=== PATIENT | female | born 1990 | race Caucasian/White ===

== ENCOUNTER 2019-10-28 13:45 | Emergency (ER) | payer OTHER ==
[~2019-10-28] VITALS: Ht 165.1 cm; Wt 99.8 kg
[2019-10-28 14:19] LABS: URINE BILIRUBIN NEGATIVE (Negative); URINE BLOOD NEGATIVE (Negative); URINE CLARITY CLEAR; URINE COLOR YELLOW; URINE GLUCOSE-RANDOM NEGATIVE (Negative); URINE KETONES NEGATIVE (Negative); URINE LEUKOCYTES-REFLEX TRACE (Negative); URINE NITRITE-REFLEX NEGATIVE (Negative); URINE PROTEIN NEGATIVE (Negative); URINE SPECIFIC GRAVITY 1.025 (1.005-1.030)
[2019-10-28 14:25] LABS: BACTERIA-REFLEX >30 Many /HPF (None Seen); CASTS None Seen /LPF (None Seen); CRYSTALS None Seen /LPF (None Seen); SQUAMOUS 0-3 Few /LPF (0-3); URINE RBC 0-2 Rare /HPF (0-2); URINE WBC-REFLEX 0-5 Rare /HPF (0-5)
[2019-10-28] MEDS ORDERED: PROZAC20 M1 PO (14:28)
[2019-10-28] MEDS ORDERED: LISINOPRIL2.5 MG PO (14:29)
[2019-10-28] MEDS ORDERED: NORCO 5-325 TA1 EAC1 PO (16:13)
[2019-10-28] MEDS ORDERED: ONDANSETRON ODT4 MG PO (16:13)
[2019-10-28] MEDS ORDERED: LIDODERM1 EACH TOP (16:13)
[2019-10-28] MEDS ORDERED: MEDROLDOSEPACK PO (16:13)
[2019-10-28 16:22] VITALS: BP 117/68
== END 2019-10-28 16:23 | disposition home or self-care (01) ==
LOC: M.ERS 13:45
PROVIDERS: Physician Assistant
DX: M51.27 Other intervertebral disc displacement, lumbosacral region (principal); Z90.49 Acquired absence of other specified parts of digestive tract; Z88.1 Allergy status to other antibiotic agents

== ENCOUNTER 2019-11-13 22:39 | Emergency (ER) | payer OTHER ==
[~2019-11-13] VITALS: Ht 165.1 cm; Wt 99.8 kg
[~2019-11-13 22:39] MED LIST: LIDODERM1 EACH TOP; LISINOPRIL2.5 MG PO; MEDROLDOSEPACK PO; NORCO 5-325 TA1 EAC1 PO; ONDANSETRON ODT4 MG PO; PROZAC20 M1 PO
[2019-11-13 23:05] LABS: URINE BILIRUBIN NEGATIVE (Negative); URINE BLOOD 3+ (Negative); URINE CLARITY CLEAR; URINE COLOR YELLOW; URINE GLUCOSE-RANDOM NEGATIVE (Negative); URINE KETONES NEGATIVE (Negative); URINE LEUKOCYTES-REFLEX NEGATIVE (Negative); URINE NITRITE-REFLEX NEGATIVE (Negative); URINE PROTEIN NEGATIVE (Negative); URINE SPECIFIC GRAVITY >= 1.030 (1.005-1.030); URINE UROBILINOGEN 0.2 E.U./dl (0.2-1.0)
[2019-11-13 23:13] LABS: AMP/METHAMP POSITIVE (Negative); BARBITURATES Negative (Negative); BENZODIAZEPINES Negative (Negative); COCAINE Negative (Negative); METHADONE Negative (Negative); OPIATES Negative (Negative); PCP Negative (Negative); THC Negative (Negative)
[2019-11-13 23:15] LABS: BACTERIA-REFLEX >30 Many /HPF (None Seen); CASTS None Seen /LPF (None Seen); CRYSTALS None Seen /LPF (None Seen); MUCUS 0-3 Light strn/LPF (None Seen); SQUAMOUS 4-10 Moderate /LPF (0-3); URINE RBC >20 Many /HPF (0-2); URINE WBC-REFLEX None Seen /HPF (0-5)
[2019-11-13] MEDS ORDERED: ROBAXIN 750 MG750 MG PO (23:32)
[2019-11-13] MEDS ORDERED: TRAMADOL 50 MG50 MG PO (23:32)
[2019-11-13] MEDS ORDERED: BACLOFEN 10MG T10 MG PO (23:32)
[2019-11-14 00:12] VITALS: BP 154/100
== END 2019-11-14 00:13 | disposition home or self-care (01) ==
LOC: M.ERS 22:39
PROVIDERS: Emergency Medicine
DX: M54.16 Radiculopathy, lumbar region (principal); Z90.49 Acquired absence of other specified parts of digestive tract; Z88.1 Allergy status to other antibiotic agents

== ENCOUNTER 2019-11-30 20:37 | Inpatient (IN) | payer OTHER ==
[~2019-11-30] VITALS: Ht 165.1 cm; Wt 99.2 kg
[~2019-11-30 20:37] MED LIST changes: +BACLOFEN 10MG T10 MG PO; +ROBAXIN 750 MG750 MG PO; +TRAMADOL 50 MG50 MG PO
[2019-11-30 20:41] VITALS: BP 115/62
[2019-11-30 21:23] LABS: HEMATOCRIT 36.1 % (37.0-47.0); HEMOGLOBIN 12.6 gm/dL (12.0-15.0); MCH 32.4 pg (26.0-34.0); MCV 92.6 fL (80.0-100.0); MPV 9.2 fl. (7.2-11.1); NUCLEATED RBCS 0 /100WBC; PLATELET COUNT* 146 thou/uL (150-400); RDW-CV 13.6 % (10.5-14.5); WBC 9.4 thou/uL (4.0-11.0)
[2019-11-30 21:30] LABS: INR 1.3; PROTIME 13.3 Seconds (9.20-11.50)
[2019-11-30 21:31] LABS: CALCIUM 7.6 mg/dL (8.5-10.1); POTASSIUM 3.7 mmol/L (3.5-5.1)
[2019-11-30 21:41] LABS: ALBUMIN 2.6 g/dL (3.4-5.0); MAGNESIUM 1.3 mg/dL (1.8-2.4); TOTAL BILIRUBIN 1.7 mg/dL (<0.1-1.0); TOTAL PROTEIN 6.1 g/dL (6.4-8.2)
[2019-11-30 21:49] LABS: BE -5.3 mmol/L (-2 to +3); PO2 97.2 mmHg (75.0-100.0); pH 7.441 (7.340-7.450)
[2019-11-30 21:53] LABS: ABSOLUTE LYMPHOCYTES 0.6 thou/uL (0.8-5.3); ABSOLUTE MONOCYTES 0.1 thou/uL (0.0-1.2); ABSOLUTE NEUTROPHILS 8.7 thou/uL (1.6-8.1); PLATELET ESTIMATE ADEQUATE
[2019-11-30 22:46] LABS: URINE BILIRUBIN NEGATIVE (Negative); URINE BLOOD 2+ (Negative); URINE CLARITY CLEAR; URINE COLOR YELLOW; URINE GLUCOSE-RANDOM NEGATIVE (Negative); URINE KETONES NEGATIVE (Negative); URINE PROTEIN 1+ (Negative); URINE SPECIFIC GRAVITY 1.015 (1.005-1.030); URINE UROBILINOGEN 0.2 E.U./dl (0.2-1.0)
[2019-11-30 22:48] LABS: URINE LEUKOCYTES-REFLEX 3+ (Negative); URINE NITRITE-REFLEX POSITIVE (Negative)
[2019-11-30 22:56] LABS: BACTERIA-REFLEX >30 Many /HPF (None Seen); CASTS None Seen /LPF (None Seen); CRYSTALS None Seen /LPF (None Seen); SQUAMOUS 0-3 Few /LPF (0-3); URINE RBC 3-10 Few /HPF (0-2); URINE WBC-REFLEX >25 Many /HPF (0-5)
[2019-11-30 23:02] LABS: AMP/METHAMP POSITIVE (Negative); BARBITURATES Negative (Negative); BENZODIAZEPINES Negative (Negative); COCAINE Negative (Negative); METHADONE Negative (Negative); OPIATES Negative (Negative); PCP Negative (Negative); THC Negative (Negative)
[2019-12-01] VITALS (82 sets, daily range): BP systolic 78–147; BP diastolic 42–126
[2019-12-01] MEDS ORDERED: TYLENOL ARTHRI650 MG PO (05:12)
--- NOTE | 2019-12-01 07:39 | NUR ---
RECEIVED PATIENT REPORT FROM ER NURSE. PATIENT BROUGHT TO UNIT AT 0215. PATIENT ORIENTED TO UNIT, BED, CALL-LIGHT, AND HOSPITAL POLICY. ASSESSMENTS COMPLETED CHARTED. CARDIAC MONITORING IN PLACE. BED LOCKED AND IN LOWEST POSITION, BED ALARM ON FOR PATIENT SAFETY.
--- NOTE | 2019-12-01 08:30 | EKG ---
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
--- NOTE | 2019-12-01 08:30 | EKG ---
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 12/01/19827 00 00 Felipe Rader MD, [facility] /EPI
--- NOTE | 2019-12-01 14:25 | NUR ---
ICU rounds: Meth positive. Covid pending. MRI of back planned. Watching for sx of withdrawing. Cards and ID following. CM left message for Pt's boyfriend to obtain hx, await call back.
[2019-12-01 14:46] LABS: CALCIUM 7.4 mg/dL (8.5-10.1); CREATININE 1.9 mg/dL (0.6-1.3); POTASSIUM 4.2 mmol/L (3.5-5.1)
--- NOTE | 2019-12-01 17:08 | NUR ---
ASSUMED CARE OF PT AROUND 0730 THIS AM. REFER TO ASSESSMENT. PT CONTINUES TO BE TACHYPNEIC THROUGHOUT SHIFT. ALTHOUGH, MAINTAINS OXYGEN SATURATION >92% ON 2L/NC. PT VERY ANXIOUS THIS SHIFT. REPORTS HAVING 'PANIC ATTACKS' FREQUENTLY. PHYSICIAN NOTIFIED AND NEW ORDERS OBTAINED FOR PRN ATIVAN. MEDICATION ADMINISTERED TO PT AND PT NOTED TO BE LETHARGIC/ DROWSY POST ADMINISTRATION ALTHOUGH, PT'S TACHYPNEA AND TACHYCARDIA CONTINUED. PT MAKING FREQUENT STATEMENTS OF LEAVING AMA THIS SHIFT. PT EDUCATED ON PLAN OF CARE. PT TITRATED OFF LEVOPHED AT THIS TIME. MAP 82. CVP MONITORING INITIATED THIS SHIFT. PT'S 4TH LITER BOLUS HELD D/T CVP AROUND 14 THIS AM. PT TOLERATING CL DIET WITH NO C/O NAUSEA AND VOMITING. PT HAVING MULTIPLE FAMILY MEMBERS TRYING TO CALL AND GET INFORMATION ON PATIENT. PT ADAMANT THAT "BOYFRIEND" JOCELINE IS THE ONLY AUTHORIZED CONTACT. STATES HER FATHER IS WHY SHE IS HOMELESS AND STATES THAT IF ANYBODY FOUND OUT ABOUT HER POSITIVE UDS SHE WOULD LOSE HER KIDS FOREVER. PT CONTINUES ON ENHANCED PRECAUTIONS ISOLATION FOR R/O COVID. NO OTHER CONCERNS AT THIS TIME. CLWR. WCTM.
--- NOTE | 2019-12-01 20:00 | NUR ---
RECEIVED REPORT AND ASSUMED CARE OF PT, ASSESSMENT COMPLETED. PT RESTLESS AND AWAKENS EASILY. PT TACHYPNIC AND MOUTH BREATHING. ENCOURAGED TO NOSE BREATH AND BLOW OUT OF MOUTH. O2 ON AT 2L/NC. ASSISTED TO BSC, PAINFUL MOVEMENT DUE TO CHRONIC BACK PAIN. VOIDING WITHOUT DIFFICULTY. SQL SSRS SSIS DEVELOPER ON SHOWING ST. WILL CONT TO MONITOR AND ASSIST NEEDED.
--- NOTE | 2019-12-01 20:00 | NUR ---
RECEIVED REPORT AND ASSUMED CARE OF PT EARLIER. ASSESSMENT COMPLETED AT THIS TIME. RT GROIN AND RLQ ABD FIRM AND TENDER TO TOUCH. NO BRUISING NOTED. RT GROIN INCISON WITHOUT REDNESS OR DRAINAGE, DRSG INTACT. BLOOD TRANSFUSION HAS COMPLETED WITHOUT INCIDENT. PT ALERT AND RESTLESS, CONSTANTLY BENDING RT LEG AND MOVING AROUND IN BED. SENIOR SAS DEVELOPER ON SHOWING SB WITH RATE INTO 50'S. NO COMPLAINTS VOICED. WILL CONT TO MONITOR AND ASSIST NEEDED.
[2019-12-02] VITALS (67 sets, daily range): BP systolic 65–151; BP diastolic 33–91
--- NOTE | 2019-12-02 | NUR ---
RESTING WELL. PLACED NASAL CANNULA INTO MOUTH DUE TO MOUTH BREATHING. PT OCC REMOVING IT AND THEN DESATS. PT AGAINED EDUCATED ON NOSE BREATHING AND ATTEMPTING TO SLOW RESP DOWN. RT IJ DRSG CHANGED WITH STERILE PROCEDURE. PT DOES C/O MIGRANE LEA WITH MOVEMENT.
--- NOTE | 2019-12-02 | NUR ---
PT HAS BEEN SLEEPING QUIETLY SINCE APPROX 2100 AND REMAINS STILL UNTIL THIS TIME. NOW PULLING AT LINES AGAIN AND BENDING LEG. VERY FORGETFUL, BELIEVES SHE HAS TO GO TO HOSPITAL TODAY FOR A SURGERY. REASSURANCE GIVEN. RLQ ABD UNCHANGED AND REMAINS TENDER TO TOUCH. DR MONROY MADE AWARE OF POST HGB.
--- NOTE | 2019-12-02 04:00 | NUR ---
SLEEPING BUT AWAKENS AND C/O MIGRANE LEA AND BACK PAIN. ASSISTED TO BSC. URINE CLOUDY YELLOW NOW. DRINKING SM AMT OF FLUIDS. NO CHANGE IN ASSESSMENT.
[2019-12-02 04:57] LABS: ABSOLUTE LYMPHOCYTES 1.1 thou/uL (0.8-5.3); ABSOLUTE MONOCYTES 0.8 thou/uL (0.0-1.2); ABSOLUTE NEUTROPHILS 13.7 thou/uL (1.6-8.1); BASOPHILS 0.2 %; EOSINOPHILS 0.2 %; HEMATOCRIT 30.9 % (37.0-47.0); LYMPHOCYTES 7.2 %; MCH 32.7 pg (26.0-34.0); MCHC 35.6 g/dL (28.0-37.0); MCV 91.8 fL (80.0-100.0); MONOCYTES 4.9 %; MPV 10.2 fl. (7.2-11.1); NUCLEATED RBCS 0 /100WBC; PLATELET COUNT* 118 thou/uL (150-400); POLYS 87.5 %; RBC 3.37 mil/uL (4.20-5.00); RDW-CV 14.5 % (10.5-14.5); WBC 15.7 thou/uL (4.0-11.0)
[2019-12-02 05:08] LABS: CALCIUM 8.1 mg/dL (8.5-10.1); CREATININE 1.6 mg/dL (0.6-1.3); MAGNESIUM 2.2 mg/dL (1.8-2.4); POTASSIUM 3.3 mmol/L (3.5-5.1)
--- NOTE | 2019-12-02 06:54 | NUR ---
SLEPT WELL BUT C/O CONSTANT HEADACHE AND BACK PAIN. DENIES NAUSEA, ASKING FOR FOOD, STATES SHE IS HUNGRY. CONT TO BE TACHPIC AND MOUTH BREATHING. ASSISTED TO BSC AND VOIDING IN LG AMT. VS STABLE WITH ASSESSMENT UNCHANGED. HS GOALS OF REST AND SAFETY ACHIEVED.
--- NOTE | 2019-12-02 07:34 | CON ---
[address] [address] CONSULTATION Name: MASONEVELYN BLACKWELL Dia Room: [address] IN M.R.#: [id number] Admission: 11/30/19 Attend Phys: Sukhwinder Stoll MD Discharge: Date of : 86 Report #: [id number] THIS REPORT FOR: //name// cc: STEVEN Andres family physician/PCP STEVEN Andres family physician/PCP ~ THIS REPORT FOR: //name// CC: Sukhwinder HARRIS physician/PCP DATE OF SERVICE: 12/01/2019 INFECTIOUS DISEASE CONSULTATION ATTENDING PHYSICIAN: Sukhwinder Stoll MD REASON FOR EVALUATION: Complicated urinary tract infection with sepsis. HISTORY OF PRESENT ILLNESS: Chart reviewed, patient examined. This is a 29-year-old woman with significant medical history who has known illicit drug use in the past was evaluated in the Emergency Room with roughly 2-day history of onset of constellation of signs and symptoms including fever or chills, diaphoresis, headache, nausea, emesis with associated upper back pain. Does admit to some dyspnea as well. There are elevated inflammatory markers including CRP greater than 430. D-dimer is elevated as well as her troponin level. Lactic acid elevated to 3.3. Urinalysis showed marked pyuria and bacteriuria. She is quite uncomfortable at this point. States she is very diaphoretic, very anxious, describes or experiences a panic attack. She is maintained on supplemental oxygen. She has been given empiric antimicrobials with vancomycin and levofloxacin, piperacillin and tazobactam. ALLERGIES: LISTED TO CEPHALEXIN, WHICH CAUSES URTICARIA. CURRENT MEDICATIONS: Include vancomycin, enoxaparin, pantoprazole, ondansetron as needed. PAST MEDICAL HISTORY: Previous cholecystectomy, tonsillectomy, chronic back pain, depression. SOCIAL HISTORY: She has 5 children, going through a divorce. FAMILY HISTORY: Noncontributory. REVIEW OF SYSTEMS: As noted above. PHYSICAL EXAMINATION: [place] [address] CONSULTATION Name: EVELYN MASON Dia Room: [address] IN [facility].#: [id number] Admission: 11/30/19 Attend Phys: Sukhwinder Stoll MD Discharge: Date of : 86 Report #: [id number] GENERAL: She is in cyco-wd-oylmxami distress. She is quite anxious. She is diaphoretic. She is able to be redirected and apparently, she is much calmer when peep out of the room. VITAL SIGNS: Temperature 98.2, pulse 122, respirations 19, blood pressure 114/67. SKIN: Warm, moist HEENT: Normocephalic. Extraocular muscles intact. NECK: Supple. LUNGS: She is tachypneic. Few scattered coarse breath sounds. HEART: Tachycardic, regular. I do not appreciate murmur. ABDOMEN: Soft, nontender, nondistended. There are no peritoneal signs. GENITOURINARY AND RECTAL: Deferred. LABORATORY DATA: Most recent lactic acid of 3.1. ProBNP of 76/12. Blood cultures sterile thus far. Chest x-ray, no acute process. CT of the chest without evidence of pulmonary embolus. Procalcitonin elevated at 9.68. test was negative. Positive drug screen for methamphetamine. Urinalysis described above, greater than 25 white cells, greater than 30 bacteria. ASSESSMENT AND PLAN: Sepsis, likely due to genitourinary tract source. We will continue therapy. This anxiety is not entirely clear. It certainly raises question of some withdrawal perhaps adverse drug effect. We will avoid the fluoroquinolones for now as needed, gram-negative coverage. Creatinine is 2.0. Continue the piperacillin and tazobactam, pending the further results. She is seemingly quite tenuous at this point. Risk for additional complications. Monitor expectantly. <ELECTRONICALLY SIGNED> By: Mike Andino MD 12/02/19 0734 1414 [id number] Andino MD /nt
--- NOTE | 2019-12-02 10:42 | NUR ---
Nutrition: screen for sepsis dx. Has order to transfer out of ICU. Tolerated clear liquid diet. To start regular diet today; pt stated she was hungry. K+ 3.3, Cl 109, RFT's 26/1.6, albumin 2.6. BMI indicates morbid obesity. Meds reviewed. Assessed at low nutrition risk at this time.
--- NOTE | 2019-12-02 15:08 | NUR ---
ICU rounds: Pt is septic and not oriented. CRIS spoke with Pt's BF via phone. Pt is normally active and independent and A&O. No DME. Per BF, for the past few days, Pt has been febrile, not eating well, hard to get out of bed and pale, which prompted BF to bring her to the hospital. Pt has a scheduled back surgery planned for 12/27/19 at [facility]. Pt has the [facility] Gold card. BF requested that Dr call him, CRIS updated . Following.
--- NOTE | 2019-12-02 17:17 | 2DMMODE ---
[place] [address] 2 D/M-MODE ECHOCARDIOGRAM Name: EVELYN MASON Room: [address] ADM IN M.R.#: [id number] Admission: 11/30/19 Attend Phys: Sukhwinder Stoll, Discharge: Date of : 86 Date of Service: 12/02/19 1715 Report #: [id number] THIS REPORT FOR: cc: FAM - No family physician/PCP FAM - No family physician/PCP Wade Lovelace MD [facility] ~ APPROVED REPORT Study performed: 12/02/2019 16:22:31 EXAM: Comprehensive 2D, Doppler, and color-flow Echocardiogram Patient Location: In-Patient BSA: 2.03 HR: 122 bpm BP: 135/84 mmHg Other Information Study Quality: Fair Indications Sepsis Elevated Troponin 2D Dimensions IVSd: 9.90 (7-11mm) LVOT Diam: 20.80 (18-24mm) LVDd: 51.34 mm PWd: 9.52 (7-11mm) Ascending Ao: 24.23 (22-36mm) LVDs: 41.01 (25-40mm) Aortic Root: 26.64 mm Volumes Left Atrial Volume (Systole) LA ESV Index: 14.40 mL/m2 Aortic Valve AoV Peak Femi.: 1.23 m/s AO Peak Gr.: 6.06 mmHg LVOT Max P.52 mmHg AO Mean Gr.: 4.11 mmHg LVOT Mean P.00 mmHg LVOT Max V: 0.94 m/s AO V2 VTI: 18.44 cm LVOT Mean V: 0.67 m/s PANFILO (VTI): 2.47 cm2 LVOT V1 VTI: 13.40 [place] [address] 2 D/M-MODE ECHOCARDIOGRAM Name: EVELYN MASON Room: [address] IN ..#: [id number] Admission: 11/30/19 Attend Phys: Sukhwinder Stoll, Discharge: Date of : 86 Date of Service: 12/02/19 1715 Report #: [id number] MV Decel. Time: 153.41 ms MV PHT: 44.49 ms MVA (PHT): 4.94 cm2 TDI Medial E' Femi.: 0.12 m/s Lateral E' Femi.: 0.07 m/s Pulmonary Valve PV Peak Femi.: 1.29 m/s PV Peak Gr.: 6.64 mmHg Tricuspid Valve RAP Estimate: 5.00 mmHg TR Peak Gr.: 35.19 mmHg RVSP: 40.19 mmHg PA Pressure: 40.19 mmHg Left Ventricle The left ventricle is normal size. There is normal LV segmental wall motion. There is normal left ventricular wall thickness. Left ventricular systolic function is borderline. LVEF is 50-55%. Right Ventricle Right ventricle is dilated. The right ventricular systolic function is normal. Atria The left atrium size is normal. Interatrial septum not well visualized. The right atrium size is normal. Aortic Valve The aortic valve is normal in structure. No aortic regurgitation is present. There is no aortic valvular stenosis. Mitral Valve The mitral valve is normal in structure. Trace mitral regurgitation. No evidence of mitral valve stenosis. Tricuspid Valve The tricuspid valve is normal in structure. Mild tricuspid regurgitation. estimated pa pressure 40 mm hg Pulmonic Valve Pulmonic valve is not well visualized. Trace pulmonic regurgitation[place] [address] 2 D/M-MODE ECHOCARDIOGRAM Name: YURIY MASONDory Alvares Room: [address] IN .R.#: [id number] Admission: 11/30/19 Attend Phys: Sukhwinder Stoll, Discharge: Date of : 86 Date of Service: 12/02/19 1715 Report #: [id number] The aortic root is normal in size. IVC is not visualized. Pericardium There is no pericardial effusion. <Conclusion> LVEF is 50-55%. Right ventricle is dilated. <ELECTRONICALLY SIGNED> By: Wade Lovelace MD, [facility] 12/02/191714 14 14 Wade Lovelace MD, [facility] /INF
--- NOTE | 2019-12-02 19:05 | NUR ---
PT SLEPT MOST OF DAY COMPLAINING THAT SHE WANTED TO GO HOME OR BE TRANSFERREDT TO [facility]. PT CALLED 911 TO ASK FOR A TRANSFER AND [place] [employer] CALLED ME TO INFORM. INFORMED PT THAT ACCORDING TO ATTENDING FELIX THERE WAS NO MEDICAL REASON FOR HER TO TRANSFER. PT ON HER CELL PHONE FREQUENTLTY WITH FAMILY AND YELLING AT FAMILY. PT REQUEST THAT NO INFORMATION BE GIVEN TO ANYONE OTHER THAN HER CURRENT BOYFRIEND. FAMILY CALLING ME CONSTANLY FOR INFORMATION AND I HAVE INFORMED THEM SHE DOES NOT WANT TO GIVE THEM HER MEDICAL INFO. PT TOLERATED PO WELL.
--- NOTE | 2019-12-02 19:45 | NUR ---
RECEIVED REPORT AND ASSUMED CARE OF PT, ASSESSMENT COMPLETED. PT LETHARGIC, SLOW TO RESPOND. ABLE TO COMMUNICATE APPROPRIATELY. DIAPHORETIC, CONT TO BE TACHYPNIC BUT RATE AND DEPTH HAVE IMPROVED. O2 ON AT 2L/NC. HEART RATE IMPROVED ALSO TO 90-100'S. WILL CONT TO MONITOR AND ASSIST NEEDED.
[2019-12-03] VITALS (15 sets, daily range): BP systolic 108–155; BP diastolic 58–89
--- NOTE | 2019-12-03 00:14 | NUR ---
SLEEPING, HAVING PERIODS OF SLEEP APNEA EVEN WITH RR 28-32 THEN DESATING. O2 PLACED IN MOUTH DUE TO MOUTH BREATHING. ASSISTED TO BSC WITHOUT DIFFICULTY. VOIDING IN LG AMT. CONT TO C/O LEA, TYLENOL GIVEN. HS SNACK GIVEN EARLIER. PT IMMEDIATELY RETURNS TO SLEEP WHEN CARE IS COMPLETED.
--- NOTE | 2019-12-03 04:00 | NUR ---
REMAINS ASLEEP THROUGH CARE. MOANING WHILE SLEEPING. WHEN AWAKE C/O HEADACHE AND SHE IS HUNGRY!
[2019-12-03 04:10] LABS: ABSOLUTE EOSINOPHILS 0.1 thou/uL (0.0-0.7); ABSOLUTE MONOCYTES 0.7 thou/uL (0.0-1.2); ABSOLUTE NEUTROPHILS 7.4 thou/uL (1.6-8.1); BASOPHILS 0.5 %; EOSINOPHILS 0.7 %; HEMATOCRIT 30.1 % (37.0-47.0); HEMOGLOBIN 10.6 gm/dL (12.0-15.0); LYMPHOCYTES 10.5 %; MCH 32.5 pg (26.0-34.0); MCHC 35.2 g/dL (28.0-37.0); MCV 92.5 fL (80.0-100.0); MONOCYTES 7.7 %; MPV 10.3 fl. (7.2-11.1); NUCLEATED RBCS 0 /100WBC; PLATELET COUNT* 102 thou/uL (150-400); POLYS 80.6 %; RBC 3.25 mil/uL (4.20-5.00); RDW-CV 14.7 % (10.5-14.5); WBC 9.1 thou/uL (4.0-11.0)
[2019-12-03 04:26] LABS: ALBUMIN 1.8 g/dL (3.4-5.0); CALCIUM 8.1 mg/dL (8.5-10.1); CREATININE 1.4 mg/dL (0.6-1.3); POTASSIUM 3.6 mmol/L (3.5-5.1); TOTAL BILIRUBIN 1.5 mg/dL (<0.1-1.0); TOTAL PROTEIN 5.3 g/dL (6.4-8.2)
--- NOTE | 2019-12-03 06:12 | NUR ---
AWAKENS EASILY BUT IMMEDIATELY RETURNS TO SLEEP. ASSISTED TO BSC, WOBBLY. NO CHANGES IN ASSESSMENT. LABORER CHEMICAL PROCESSING SHOWING SR TO ST. HS GOALS OF REST AND SAFETY ACHIEVED.
--- NOTE | 2019-12-03 13:41 | NUR ---
PT TRANFERED TO ROOM 218. REPORT TO [facility].
--- NOTE | 2019-12-03 16:10 | NUR ---
PATIENT RESTING IN BED. UP AD THOMAS IN ROOM. STILL SLEEPY BUT EASILY AROUSABLE. VSS. AOX4. IV FLUIDS AND ABZ PER ORDERS. POSSIBLE DC TOMORROW. HOURLY ROUNDING COMPLETED FOR PATIENT SAFETY.
[2019-12-04] VITALS: BP 120/73
[2019-12-04 04:00] VITALS: BP 122/58
--- NOTE | 2019-12-04 06:54 | NUR ---
ASSESSMENTS COMPLETED AT BEDSIDE, PLEASE REFER TO CHARTING. MEDICATIONS ADMINISTERED PER MAR. HOURLY ROUNDING COMPLETED FOR SAFETY. CALL LIGHT WITHIN REACH. ALL NEEDS MET AT THIS TIME.
[2019-12-04 08:00] VITALS: BP 138/87
[2019-12-04 12:00] VITALS: BP 152/83
--- NOTE | 2019-12-04 16:37 | NUR ---
SRIKANTH RESTING IN BED. SPENT THE MAJORITY OF THE DAY SLEEPING AND ONLY OCCASSIONALLY WANTED OR NEEDED ANYTHING. SHE DENIES PAIN. SHE REPORTS THE NEED FOR CAFFEINE TO STAVE OFF HEADACHES. HOURLY RONDING COMPLETED FOR PATINET SAFETY.
[2019-12-04 17:02] VITALS: BP 142/79
[2019-12-04 19:27] VITALS: BP 131/62
[2019-12-05 00:05] VITALS: BP 150/66
[2019-12-05 04:15] VITALS: BP 145/64
[2019-12-05 04:26] LABS: HEMOGLOBIN 10.5 gm/dL (12.0-15.0); MCH 31.7 pg (26.0-34.0); MCHC 34.9 g/dL (28.0-37.0); MCV 90.8 fL (80.0-100.0); MPV 9.8 fl. (7.2-11.1); NUCLEATED RBCS 0 /100WBC; PLATELET COUNT* 107 thou/uL (150-400); RDW-CV 13.8 % (10.5-14.5)
[2019-12-05 04:33] LABS: CALCIUM 7.9 mg/dL (8.5-10.1); CREATININE 1.2 mg/dL (0.6-1.3); POTASSIUM 3.3 mmol/L (3.5-5.1)
[2019-12-05 05:53] LABS: ABSOLUTE LYMPHOCYTES 2.2 thou/uL (0.8-5.3); ABSOLUTE MONOCYTES 1.4 thou/uL (0.0-1.2); ABSOLUTE NEUTROPHILS 5.4 thou/uL (1.6-8.1); MYELOCYTES 1 %
[2019-12-05 05:54] LABS: ANISOCYTOSIS 1+; PLATELET ESTIMATE DECREASED; POIKILOCYTOSIS 1+
--- NOTE | 2019-12-05 06:01 | NUR ---
RECEIVED REPORT AND ASSUMED CARE OF PATIENT AT 1900. VSS. NO ACUTE CHANGES THROUGHOUT SHIFT. ALL ROUNDINGS COMPLETED, ALL NEEDS MET, FULL ASSESSMENT COMPLETED CHARTED.
[2019-12-05 07:48] VITALS: BP 139/81
[2019-12-05 11:49] VITALS: BP 139/81
[2019-12-05] MEDS ORDERED: BACTRIM DS TAB1 EAC1 PO (11:59)
== END 2019-12-05 12:45 | disposition home or self-care (01) | DRG 871 ==
LOC: M.ERS 20:37 → M.TBA-ER 23:34 → M.ERS 23:34 → M.ICU 23:34 → M.TBA-ER 12-01 01:57 → M.ICU 12-01 01:57 → M.2W 12-03 13:33
PROVIDERS: Emergency Medicine; ADMIT Internal Medicine; ATTEND Internal Medicine
PROC: B548ZZA Ultrasonography of Superior Vena Cava, Guidance (ICD-10-PCS; principal; 2019-11-30)
PROC: 02HV33Z Insertion of Infusion Device into Superior Vena Cava, Percutaneous Approach (ICD-10-PCS; principal; 2019-11-30)
DX: A41.89 Other specified sepsis (principal); I21.4 Non-ST elevation (NSTEMI) myocardial infarction; G92 Toxic encephalopathy; R65.21 Severe sepsis with septic shock; N17.0 Acute kidney failure with tubular necrosis; N39.0 Urinary tract infection, site not specified; F15.129 Other stimulant abuse with intoxication, unspecified; F32.9 Major depressive disorder, single episode, unspecified; I95.9 Hypotension, unspecified; G89.29 Other chronic pain; F17.210 Nicotine dependence, cigarettes, uncomplicated; I10 Essential (primary) hypertension; B96.1 Klebsiella pneumoniae [K. pneumoniae] as the cause of diseases classified elsewhere; M54.9 Dorsalgia, unspecified; Z20.828 Contact with and (suspected) exposure to other viral communicable diseases; Z90.49 Acquired absence of other specified parts of digestive tract; Z88.1 Allergy status to other antibiotic agents; Z79.899 Other long term (current) drug therapy